=== PATIENT | female | born 1945 | race Caucasian/White ===

== ENCOUNTER 2017-06-11 06:14 | Day surgery (SDC) | payer BC ==
[2017-06-10 09:09] VITALS: BMI 21.6
[~2017-06-11 06:14] MED LIST: Cyclopentolate 1% Opth Drop 2 ML BOT FS SCH; Diprivan 20 ML ONE; Fentanyl 100 MCG/2 ML VIAL ONE; Fluorouracil 100 MG, Enoxaparin Sodium 25 MG, EPINEPHrine 0.3 MG in Ophthalmic Irrigati... IVPB SCH; Midazolam HCl 2 mg/2 ml Vial ONE; Phenylephrine 2.5% Ophth Soln 5 ML BOT FS SCH
[2017-06-11] MEDS ORDERED: Cyclopentolate 1% Opth Drop 2 ML BOT ONE (06:37)
[2017-06-11] MEDS ORDERED: Phenylephrine 2.5% Ophth Soln 5 ML BOT ONE (06:37)
[2017-06-11] MEDS ORDERED: Lidocaine 1% PF 5 ML VIAL ONE (11:19)
[2017-06-11] MEDS ORDERED: Propofol 200 MG/20 ML VIAL ONE (11:19)
--- NOTE | 2017-06-11 13:37 | OP ---
DATE OF SURGERY: 06/11/2017 PREOPERATIVE DIAGNOSIS: Macular hole, left eye. POSTOPERATIVE DIAGNOSIS: Macular hole, left eye. PROCEDURE: Pars plana vitrectomy, internal limiting membrane peel, left eye. SURGEON: Tejas García M.D. ANESTHESIA: Local with monitored anesthesia care. PROCEDURE IN DETAIL: The patient was identified in the preoperative holding area. Appropriate infor med consent for the planned surgical procedure on the left eye had been obtained. The patient was tr ansported to the operative suite where appropriate cardiopulmonary monitoring was established. Local anesthesia was obtained using retrobulbar and modified Van Lint lid block using 50/50 mixture of 4% lidocaine and 0.75% bupivacaine. The patient was prepped and draped in the usual sterile manner for ophthalmic surgery on the left eye. Lid speculum was placed in the left eye. A 25-gauge trocars wer e placed in conjunctiva and sclera supratemporally, inferotemporally, and supranasally. Infusion js e was placed inferotemporally. Light pipe and vitreous cutter were inserted into the eye. Core of v itrectomy was performed. Indocyanine green dye was infused onto the posterior pole x1, identifying t he internal limiting membrane. This was elevated using membrane scraper and peeled in [address] across the macula. Indirect ophthalmoscopy was used to examine the retina 360 degrees. No hol es, breaks, or tears were identified. Prophylactic laser was placed behind the sclerotomy sites. A 15% perfluoropropane gas was infused into the eye. Trocars were removed and the eye was noted to ret ain pressure well. Retrobulbar Kenalog and subconjunctival Ancef were placed. Antibiotic ointment w as placed and the eye was patched and shielded. The patient was taken to the postoperative recovery unit in good condition having suffered no immediate perioperative complications. Patient was instruc lele to keep patch and shield on, avoid lifting or bending, and follow up in the morning with Dr. García .
== END 2017-06-11 08:58 | disposition home or self-care (01) ==
LOC: SDC 06:14
PROVIDERS: ATTEND Ophthalmology Retina Specialist
DX: H35.342 Macular cyst, hole, or pseudohole, left eye (principal)
CPT/HCPCS: 67025; J0171; J1650; J2001; J2250; J2704; J3010; J9190

== ENCOUNTER 2019-01-26 14:32 | Inpatient (IN) | payer BC ==
[2019-01-26] MEDS ORDERED: Ondansetron PF 4 MG/2 ML Vial IVP PRN (17:22)
[2019-01-26] MEDS ORDERED: Morphine 2 MG/ML SYRINGE SLOW IVP PRN (17:22)
[2019-01-26] MEDS: Sodium Chloride 0.9% 1,000 ML IV SCH (17:54)
[2019-01-26 18:14] VITALS: BMI 23.6
[2019-01-26] MEDS: Piperacillin/Tazobactam 3.375 GM in Sodium Chloride 0.9% 100 ML IVPB SCH (19:02)
[2019-01-27] MEDS: Piperacillin/Tazobactam 3.375 GM in Sodium Chloride 0.9% 100 ML IVPB SCH ×4 (00:03→17:39)
[2019-01-27] MEDS: Sodium Chloride 0.9% 1,000 ML IV SCH ×3 (00:05→13:01)
[2019-01-27 06:29] LABS: Anion Gap 14 mmol/L (10-20); BUN (Urea Nitrogen) 9 mg/dL (9.8-20.1); Calc. Creatinine Clearance 77 mL/min (70-130); Calcium 8.2 mg/dL (7.8-10.44); Carbon Dioxide 23 mmol/L (23-31); Chloride 107 mmol/L (98-107); Estimated GFR-MDRD Greater than 90; Glucose 106 mg/dL (83-110); Potassium 3.6 mmol/L (3.5-5.1); Sodium 140 mmol/L (136-145)
--- NOTE | 2019-01-27 08:33 | HP ---
REASON FOR ADMISSION: Abdominal pain. HISTORY OF PRESENT ILLNESS: This is a 73-year-old female presenting with abdominal pain history going back to 5 days before her presentation. She started experiencing pain in her lower abdominal area described as cramping in nature worse at night, radiating to her back, [id number] in intensity, exacerbated with movement. She did not have any diarrhea. She denies fever. Denies chills. Denies nausea. Denies vomiting, but does report decrease in appetite. Yesterday, she was not able to go to sleep. Today, she went to the emergency room. CAT scan showed complicated diverticulitis. She was referred to us for admission. Currently, she is in the emergency room, appears to be comfortable, does not look toxic. PAST MEDICAL HISTORY: High cholesterol. SOCIAL HISTORY: She does not smoke. She quit smoking 5 months ago. She drinks alcohol socially. PAST SURGICAL HISTORY: Appendectomy. FAMILY HISTORY: Negative for heart disease. ALLERGIES: NO KNOWN DRUG ALLERGIES. REVIEW OF SYSTEMS: All systems reviewed except for the above-mentioned abdominal pain and found to be negative. PHYSICAL EXAMINATION: GENERAL: She is awake, alert, and oriented. Does not appear in distress. HEENT: Her blood pressure 117/75, heart rate of 94. HEENT: Head is nontraumatic and normocephalic. Pupils are equal and reactive. Extraocular muscles are intact. Nonicteric sclerae. Well-injected conjunctivae. Oral mucosa normal. Nasal mucosa normal. NECK: Supple. No adenopathy. No murmur. Thyroid is not palpable. Trachea is midline. No supraclavicular lymphadenopathy. HEART: S1 and S2 regular. No murmur. No gallops. No frictional rubs. No displacement of PMI. LUNGS: Clear to auscultation bilaterally. No wheezes. No rhonchi. No crackles. ABDOMEN: Bowel sounds are positive. Tenderness on palpation of the left lower quadrant area. Overall, the abdomen is soft. EXTREMITIES: No lower extremity edema. No cyanosis. NEUROLOGIC: Cranial nerves 2 through 12 within normal limits. Normal motor function. Normal sensory function and reflexes. LABORATORY DATA: Blood work shows sodium 140, potassium 3.6, BUN 15, creatinine 0.72. WBC 19.1, hemoglobin 11.7, platelets of 389. IMAGING DATA: CT of the abdomen and pelvis showed complicated acute diverticulitis with multiple pelvic abscesses, hyperdense fluid in the pelvis may represent the purulent debris. ASSESSMENT AND PLAN: This is a 73-year-old female patient, presenting with abdominal pain secondary to complicated diverticulitis. She did receive IV Zosyn at the ER and Surgery was consulted by the ER physician. The recommendation was for us to admit, start antibiotic, and they would see later on. The patient will be on aggressive fluid hydration and she will be maintained on IV Zosyn. She will have morphine on an as needed basis for pain. She will be n.p.o. except for ice chips. For deep venous thrombosis prophylaxis, she would be on SCDs and low-dose Lovenox. We will recheck her labs in the morning. We will follow Surgery recommendation. Job ID: [id number]
[2019-01-27 08:36] LABS: #Eosinphils 0.2 thou/uL (0.0-0.7); #Lymphocytes 1.4 thou/uL (1.20-3.40); #Monocytes 0.9 thou/uL (0.11-0.59); #Neutrophils 10.7 thou/uL (1.40-6.50); %Basophils 0.3 % (0.0-1.0); %Eosinophils 1.2 % (0.0-10.0); %Lymphocytes 10.8 % (21.0-51.0); %Monocytes 6.5 % (0.0-10.0); %Neutrophils 81.2 % (42.0-75.0); Hemoglobin 10.2 g/dL (12.0-16.0); Mean Corpuscular HGB CONC 32.9 g/dL (32.0-36.0); Mean Corpuscular Hemoglobin 31.4 pg (27.0-31.0); Mean Corpuscular Volume 95.5 fL (78.0-98.0); Mean Platelet Volume 7.7 fL (7.4-10.4); Platelet Count 360 thou/uL (130-400); RBC Distribution Width 11.9 % (11.5-14.5); Red Blood Cell (RBC) Count 3.23 mill/uL (4.20-5.40); White Blood Cell (WBC) Count 13.2 thou/uL (4.8-10.8)
[2019-01-27] MEDS: Enoxaparin Sodium 30 MG/0.3 ML SYRINGE SC SCH (10:18)
--- NOTE | 2019-01-27 13:33 | PDOC.HOSPP ---
- Subjective Encounter Date: 01/27/19 Subjective: She continues to have abdominal pain. - Objective Vital Signs & Weight: Vital Signs (12 hours) Temp Pulse Resp BP Pulse Ox 01/27/19 11:09 98.5 F 56 L 16 134/76 96 01/27/19 08:00 96 01/27/19 07:21 97.9 F 87 16 125/69 96 01/27/19 04:00 98.4 F 92 20 149/78 H 94 L Weight Weight 133 lb 8 oz I&O: 01/26/19 01/27/19 01/28/19 06:59 06:59 06:59 Intake Total 1700 Balance 1700 Result Diagrams: 01/27/19 05:08 01/27/19 05:08 Hospitalist ROS - Medication Medications: Active Medications Generic Name Dose Route Start Last Admin Trade Name Freq PRN Reason Stop Dose Admin Enoxaparin Sodium 30 mg 01/27/19 09:00 01/27/19 10:18 Lovenox SC Not Given 0900 EDD Piperacillin Sod/Tazobactam 100 mls @ 200 mls/hr 01/26/19 18:00 01/27/19 12: 59 Sod 3.375 gm/ Sodium Chloride IVPB 100 mls Q6HR EDD Administration Sodium Chloride 1,000 mls @ 125 mls/hr 01/26/19 17:22 01/27/19 13:01 Normal Saline 0.9% IV 1,000 mls .Q8H EDD Administration - Exam General Appearance: NAD, awake alert Eye: PERRL, anicteric sclera ENT: normocephalic atraumatic Respiratory: CTAB, no wheezes, no rales, no ronchi, normal chest expansion, no tachypnea, normal percussion Gastrointestinal: tender to palpation Extremities: no cyanosis, no clubbing, no edema Skin: normal turgor, no lesions, no rashes Neurological: CN's grossly intact, normal sensation to touch, no weakness, no focal deficits, no new deficit Hosp A/P (1) Diverticulitis Code(s): K57.92 - DVTRCLI OF INTEST, PART UNSP, W/O PERF OR ABSCESS W/O BLEED Status: Acute - Plan complicated diverticulitis---continue IV Zosyn---her labs are improving---will recheck in am---awaiting surgery for further recommendation. SCD for DVT prophylaxis Morphine for pain control.
[2019-01-27] MEDS ORDERED: traMADol HCl 50 MG TAB PO PRN ×2 (16:51)
[2019-01-27] MEDS ORDERED: Acetaminophen 325 MG TAB PO PRN (16:51)
--- NOTE | 2019-01-27 17:48 | CON ---
DATE OF CONSULTATION: 01/27/2019 REQUESTING PHYSICIAN: Becky Jhaveri MD HISTORY OF PRESENT ILLNESS: This is a 73-year-old woman, who was admitted yesterday with vague abdominal pain, malaise about 6 days duration. The patient was vacationing in [place] where she started to feel unwell. She had one episode of lower abdominal pain, which she rated as at 6 to 7/10 and resolved spontaneously. Since that time, however, she admits to not feeling quite well. She did not have any fevers or chills. She denied any diarrhea. She does not recall the last time she passed flatus. She thought it might have been yesterday. She denies any change in her bowel habits otherwise. PAST MEDICAL HISTORY: Pertinent for hyperlipidemia, and degenerative arthritic disease. PAST SURGICAL HISTORY: Pertinent for childhood tonsillectomy and adenoidectomy as well as appendectomy approximately 20 years ago. SOCIAL HISTORY: She is , lives at home with her . She admits to having a drink or two of vodka every night with her . She has not had any alcohol over the last 4 to 5 days. She used to smoke a pack of cigarettes per day for approximately 15 years. She has not smoked over the last 6 months. She denies any illicit drug abuse. FAMILY HISTORY: Noncontributory for this patient's age. PRE-HOSPITAL MEDICATIONS: Include: 1. Albuterol inhalation therapy q.4 hours p.r.n. 2. Ascorbic acid 1000 mg p.o. daily. 3. Aspirin 81 mg p.o. daily. 4. Calcium and vitamin D combination 600 mg/125 units p.o. daily. 5. Vitamin B12 of 1000 mcg p.o. q.a.m. 6. Fish oil 1000 mg p.o. b.i.d. 7. Magnesium 500 mg p.o. daily. 8. Quinapril 10 mg p.o. daily. 9. Simvastatin 40 mg p.o. daily. 10. Bupropion 150 mg p.o. daily. ALLERGIES: THE PATIENT DENIES ANY KNOWN DRUG ALLERGIES. REVIEW OF SYSTEMS: Ten-point review of systems essentially unremarkable except as stated in past medical history and chief complaint. PHYSICAL EXAMINATION: GENERAL: This reveals a 73-year-old normally developed woman, who is otherwise coherent and interactive and appears stated age. The patient is alert and oriented x3, appears to be in no acute distress at time of my evaluation. VITAL SIGNS: Include blood pressure 134/76, pulse is 56, respiratory rate is 16, temperature is 98.5 degrees Fahrenheit, oxygen saturation is 96% on room air. HEART: Reveals regular rate and rhythm. No murmurs or gallops auscultated. LUNGS: Clear to auscultation bilaterally. Breathing, regular and nonlabored. ABDOMEN: Soft and nondistended. She has mild tenderness in the bilateral lower quadrants. She clearly has no gross rebound tenderness present. Bowel sounds are present in all 4 quadrants and normoactive. EXTREMITIES: Reveal 2+ radial and pedal pulses bilaterally. No ankle edema is present. NEUROLOGIC: Reveals no focal deficits present. LABORATORY FINDINGS: Today include a CBC with 13,200 white blood cells, hemoglobin and hematocrit of 10.2 and 30.9 respectively, platelet count is 360,000. Metabolic profile; sodium 140, potassium 3.6, chloride is 107, bicarb is 23, BUN is 9, creatinine 0.61, glucose is 106. I have personally reviewed CT scan of the abdomen and pelvis, which was obtained yesterday. This reveals extensive diverticulosis coli involving the sigmoid colon. There is mesenteric fat stranding adjacent to the sigmoid colon. Also noted 3 fluid collections adjacent to the sigmoid colon and the urinary bladder measuring 5.8, 4.6, and 3.5 cm in diameter. No pneumoperitoneum is evident. IMPRESSION: Acute diverticulitis with multiple pelvic diverticular abscesses. RECOMMENDATIONS: Continue with current antibiotic regimen as this patient has no peritoneal signs to warrant any surgical intervention at this time. I did discuss with the Interventional Radiology, the positions of the abscesses relative to bowel and bladder make them not amenable to percutaneous drainage. The patient's physiology, which is normal at this time dictates conservative treatment. Should this treatment fail marked by either exacerbation of abdominal pain, any physiologic trend including fever, nausea, vomiting, blood pressure, or renal dysfunction. This may warrant laparoscopic abdominal washout and drainage of pelvic abscesses. Ultimately, the patient is going to require elective sigmoidectomy and primary anastomosis if the current acute diverticulitis with pelvic abscesses resolved. Prior to the elective colectomy, the patient will need prepped colon colonoscopy. She has not had any lower endoscopies over the last 10 years. Above findings and plan have been discussed with the patient in the presence of her nurse. She indicates understanding of information I have given her today. I have answered her questions. Thank you again, Dr. Jhaveri, for allowing me the opportunity to participate in the care of this patient. Job ID: [id number]
[2019-01-28] MEDS: Piperacillin/Tazobactam 3.375 GM in Sodium Chloride 0.9% 100 ML IVPB SCH ×2 (00:55→06:04)
--- NOTE | 2019-01-28 00:55 | PRG ---
DATE OF SERVICE: 01/27/2019 SUBJECTIVE: Ms. Palmer is 73 -year-old female, came to the emergency room with abdominal pain. She was found to have acute diverticulitis with multiple pelvic diverticular abscesses. Dr. Palacios saw the patient earlier today with recommendation to continue with current antibiotic regimen as the patient did not have peritoneal signs to warrant any surgical intervention at that time. When I saw the patient on rounds this evening, the patient is lying down in bed comfortably. She reports no spontaneous abdominal pain, but she reports she does have abdominal pain of the left lower quadrant to touch. She reports no vomiting or nausea. She developed no fever or shortness of breath. OBJECTIVE: VITAL SIGNS: Stable. LUNGS: Clear bilaterally. HEART: Regular rate and rhythm. ABDOMEN: Generally soft. No rebound. No guarding. EXTREMITIES: Left lower extremity tender to touch. Bowel sounds normal. PLAN: Will be to continue serial exam for peritoneal signs, continue antibiotics and the patient to continue on liquid diet. Job ID: [id number] MTDD
[2019-01-28] MEDS: Sodium Chloride 0.9% 1,000 ML IV SCH ×3 (01:36→16:38)
[2019-01-28 08:12] LABS: Hemoglobin 10.1 g/dL (12.0-16.0); Mean Corpuscular Hemoglobin 31.4 pg (27.0-31.0); Mean Corpuscular Volume 94.9 fL (78.0-98.0); Mean Platelet Volume 7.5 fL (7.4-10.4); Platelet Count 385 thou/uL (130-400); RBC Distribution Width 11.9 % (11.5-14.5); Red Blood Cell (RBC) Count 3.23 mill/uL (4.20-5.40); White Blood Cell (WBC) Count 9.1 thou/uL (4.8-10.8)
[2019-01-28 08:19] LABS: Phosphorus 2.1 mg/dL (2.3-4.7)
[2019-01-28 08:24] LABS: Anion Gap 14 mmol/L (10-20); BUN (Urea Nitrogen) 5 mg/dL (9.8-20.1); Calc. Creatinine Clearance 86 mL/min (70-130); Calcium 8.3 mg/dL (7.8-10.44); Carbon Dioxide 25 mmol/L (23-31); Chloride 105 mmol/L (98-107); Estimated GFR-MDRD Greater than 90; Glucose 98 mg/dL (83-110); Magnesium 1.6 mg/dL (1.6-2.6); Sodium 141 mmol/L (136-145)
[2019-01-28 08:33] LABS: Potassium 2.9 mmol/L (3.5-5.1)
[2019-01-28] MEDS ORDERED: Potassium Phosphate 30 MMOL, Magnesium Sulfate 4 GM in Sodium Chloride 0.9% 250 ML 250 ML IVPB SCH (08:45)
[2019-01-28] MEDS ORDERED: Ciprofloxacin 500 MG TAB PO SCH (08:45)
[2019-01-28] MEDS ORDERED: Potassium Chloride 20 MEQ in Premix Bag 1 BAG IVPB SCH (09:00)
[2019-01-28 09:15] LABS: Band 15 % (5-11); Lymphocytes 17 % (21-51); MDiff Complete? YES; Monocytes 6 % (0-10); Neutrophil 62 % (42-75); Platelet Morphology Comment Appears Adequate; Polychromasia SLIGHT = 2-3 cells (100X) (0-2/hpf)
[2019-01-28] MEDS: metroNIDAZOLE 500 MG TAB PO SCH ×3 (09:17→20:12)
[2019-01-28] MEDS: Enoxaparin Sodium 30 MG/0.3 ML SYRINGE SC SCH (09:17)
[2019-01-28] MEDS: Bupropion 150 MG XL TAB PO SCH (09:17)
--- NOTE | 2019-01-28 15:18 | PRG ---
DATE OF SERVICE: 01/28/2019 SUBJECTIVE: Ms. Palmer is a 73-year-old woman, admitted with acute diverticulitis with multiple diverticular abscesses. The patient is awake and alert today. She tolerates clear liquid diet. She denies any abdominal pain. She is passing flatus and having bowel movements. OBJECTIVE: VITAL SIGNS: Her vital signs this morning include blood pressure 173/84, pulse is 85, respiratory rate is 16, temperature 98.1 degrees Fahrenheit, oxygen saturation 96% on room air. HEART: Regular rate and rhythm. No murmurs or gallops auscultated. LUNGS: Clear to auscultation bilaterally. Her breathing is regular and nonlabored. ABDOMEN: Soft, nontender, and nondistended. Bowel sounds in all 4 quadrants appear normoactive. NEUROLOGIC: No focal deficits present. LABORATORY DATA: Laboratory findings today include a CBC with 9100 white blood cells, this is down from 13,200 yesterday. Hemoglobin and hematocrit remained stable at 10.1 and 30.7 respectively. Platelet count is 385,000. Differential counts as follows: 62% segmented neutrophils, 15 bands, 17 lymphocytes, and 6 monocytes. Metabolic profile: Sodium 141, potassium 2.9, chloride is 105, bicarb is 25, BUN is 5, creatinine 0.55, glucose is 98, phosphorus is 2.1, magnesium is 1.6. IMPRESSIONS: 1. Acute diverticulitis with multiple diverticular abscesses, hemodynamically stable with no evidence of peritonitis. 2. Acute hypokalemia. 3. Acute hypomagnesemia. 4. Acute hypophosphatemia. PLAN: 1. Correct abnormal electrolytes. 2. Advance diet and activity as tolerated. 3. We will discontinue piperacillin and tazobactam and initiate oral ciprofloxacin and metronidazole. 4. The patient will be placed on Florastor as well. 5. Anticipate discharge within next 24 to 48 hours if tolerating diet with no onset of abdominal pain and the patient is able to tolerate antibiotic therapy. Above findings and plans discussed with the patient who indicates understanding information given. We informed her she will be taking the antibiotics for the next 2 weeks, after which we will repeat the CT scan of the abdomen and pelvis to monitor for resolution of the diverticular abscesses. The patient indicates understanding information given, and I have answered her questions. There remain no acute surgical indication therefore for this patient at this time. Job ID: [id number]
--- NOTE | 2019-01-28 19:25 | PDOC.HOSPP ---
- Subjective Encounter Date: 01/28/19 Subjective: eating dinner and has no complaints - Objective Vital Signs & Weight: Vital Signs (12 hours) Temp Pulse Resp BP Pulse Ox 01/28/19 08:00 96 01/28/19 07:59 98.1 F 85 16 173/84 H 96 Weight Weight 133 lb 8 oz I&O: 01/27/19 01/28/19 01/29/19 06:59 06:59 06:59 Intake Total 1700 Balance 1700 Result Diagrams: 01/28/19 07:37 01/28/19 07:37 Hospitalist ROS - Medication Medications: Active Medications Generic Name Dose Route Start Last Admin Trade Name Danialq PRN Reason Stop Dose Admin Bupropion HCl 150 mg 01/28/19 09:00 01/28/19 09:17 Wellbutrin Xl PO 150 mg QAM EDD Administration Enoxaparin Sodium 30 mg 01/27/19 09:00 01/28/19 09:17 Lovenox SC 30 mg 0900 EDD Administration Metronidazole 500 mg 01/28/19 09:00 01/28/19 14:37 Flagyl PO 500 mg TID EDD Administration Sodium Chloride 10 ml 01/28/19 09:00 01/28/19 09:18 Flush - Normal Saline IVF 10 ml Q12HR EDD Administration - Exam General Appearance: NAD, awake alert, ill appearing Eye: PERRL, anicteric sclera, scleral icterus ENT: normocephalic atraumatic, no oropharyngeal lesions, moist mucosa, dry oral mucosa Heart: RRR, no murmur, no gallops, no rubs, normal peripheral pulses, irregular , diminshed peripheral pulses, murmur present, II/IV, III/IV Respiratory: CTAB, no wheezes, no rales, no ronchi, normal chest expansion, no tachypnea, normal percussion, rales, rhonchi, tachypneic, wheezes Gastrointestinal: soft, non-tender, non-distended, normal bowel sounds, no palpable masses, no hepatomegaly, no splenomegaly, no bruit, no guarding, no rigidity, tender to palpation, distended, diminished bowl sounds, voluntary guarding Extremities: no cyanosis, no clubbing, no edema, 1+ LE edema, 2+ LE edema, clubbing Skin: normal turgor, no lesions, no rashes, tenting Hosp A/P (1) Diverticulitis Code(s): K57.92 - DVTRCLI OF INTEST, PART UNSP, W/O PERF OR ABSCESS W/O BLEED Status: Acute - Plan complicated diverticulitis---transitioned to oral ATB and on a regular diet. SCD for DVT prophylaxis Morphine for pain control. Home BP meds restarted lytes replaced , recheck in am
[2019-01-28] MEDS: Ciprofloxacin 500 MG TAB PO SCH (20:12)
[2019-01-28] MEDS: Fish Oil 1,000 MG CAP PO SCH (20:13)
[2019-01-28] MEDS ORDERED: Ascorbic Acid 500 mg Chewable Tablet PO SCH (21:00)
[2019-01-28] MEDS ORDERED: Atorvastatin Calcium 20 MG TAB PO SCH (21:00)
[2019-01-29] MEDS: Ciprofloxacin 500 MG TAB PO SCH (05:14)
[2019-01-29 07:38] LABS: Hemoglobin 9.9 g/dL (12.0-16.0); Mean Corpuscular HGB CONC 33.3 g/dL (32.0-36.0); Mean Corpuscular Hemoglobin 31.3 pg (27.0-31.0); Mean Platelet Volume 7.3 fL (7.4-10.4); Platelet Count 431 thou/uL (130-400); RBC Distribution Width 11.8 % (11.5-14.5); Red Blood Cell (RBC) Count 3.15 mill/uL (4.20-5.40); White Blood Cell (WBC) Count 6.6 thou/uL (4.8-10.8)
[2019-01-29 07:48] LABS: Anion Gap 12 mmol/L (10-20); BUN (Urea Nitrogen) Less than 4 mg/dL (9.8-20.1); Calc. Creatinine Clearance 83 mL/min (70-130); Calcium 8.4 mg/dL (7.8-10.44); Carbon Dioxide 25 mmol/L (23-31); Chloride 104 mmol/L (98-107); Estimated GFR-MDRD Greater than 90; Glucose 112 mg/dL (83-110); Magnesium 2.1 mg/dL (1.6-2.6); Phosphorus 2.1 mg/dL (2.3-4.7); Potassium 3.4 mmol/L (3.5-5.1); Sodium 138 mmol/L (136-145)
[2019-01-29 08:00] LABS: Band 3 % (5-11); Eosinophils 4 % (0-10); Lymphocytes 12 % (21-51); MDiff Complete? YES; Monocytes 7 % (0-10); Neutrophil 73 % (42-75); Platelet Morphology Comment Appears Increased; Reactive Lymphocytes 1 % (0-10)
[2019-01-29] MEDS: Bupropion 150 MG XL TAB PO SCH (08:38)
[2019-01-29] MEDS: Enoxaparin Sodium 30 MG/0.3 ML SYRINGE SC SCH (08:38)
[2019-01-29] MEDS: Fish Oil 1,000 MG CAP PO SCH (08:38)
[2019-01-29] MEDS: metroNIDAZOLE 500 MG TAB PO SCH ×2 (08:38→15:28)
[2019-01-29] MEDS ORDERED: Cyanocobalamin (Vitamin B-12) 1,000 MCG TAB PO SCH (09:00)
[2019-01-29] MEDS ORDERED: Calcium Carbonate + Vit D 1 TAB PO SCH (09:00)
[2019-01-29] MEDS ORDERED: Stress 600 With Zinc 1 TAB PO SCH (09:00)
[2019-01-29] MEDS ORDERED: Saccharomyces boulardii 250 MG CAP PO SCH (09:00)
[2019-01-29] MEDS ORDERED: Lisinopril 10 MG TAB PO SCH (09:00)
[2019-01-29] MEDS ORDERED: Magnesium Oxide 250 MG TAB PO SCH (09:00)
--- NOTE | 2019-01-29 15:49 | PDOC.HOSPP ---
- Subjective Encounter Date: 01/29/19 Encounter Time: 15:48 Subjective: Ms. Palmer was seen today in follow-up of diverticulitis and abscess. She is doing fine, and would like to go home.She is tolerating a diet, and denies abdominal pain. - Objective Vital Signs & Weight: Vital Signs (12 hours) Temp Pulse Resp BP BP Pulse Ox 01/29/19 08:38 145/90 H 01/29/19 08:00 98.2 F 80 18 145/90 H 96 Weight Weight 133 lb 8 oz I&O: 01/28/19 01/29/19 01/30/19 06:59 06:59 06:59 Intake Total 350 Balance 350 Result Diagrams: 01/29/19 06:43 01/29/19 06:43 Hospitalist ROS - Medication Medications: Active Medications Generic Name Dose Route Start Last Admin Trade Name Freq PRN Reason Stop Dose Admin Ascorbic Acid 1,000 mg 01/28/19 21:00 01/28/19 20:13 Vitamin C PO 1,000 mg QPM EDD Administration Atorvastatin Calcium 20 mg 01/28/19 21:00 01/28/19 20:12 Lipitor PO 20 mg HS EDD Administration Bupropion HCl 150 mg 01/28/19 09:00 01/29/19 08:38 Wellbutrin Xl PO 150 mg QAM EDD Administration Calcium/Vitamin D 1 tab 01/29/19 09:00 01/29/19 08:38 Caltrate 600 + Vit D PO 1 tab QAM EDD Administration Ciprofloxacin 500 mg 01/28/19 20:00 01/29/19 05:14 Cipro PO 500 mg 0600,2000 EDD Administration Cyanocobalamin 1,000 mcg 01/29/19 09:00 01/29/19 08:38 Vitamin B-12 PO 1,000 mcg QAM EDD Administration Enoxaparin Sodium 30 mg 01/27/19 09:00 01/29/19 08:38 Lovenox SC 30 mg 0900 EDD Administration Fish Oil 1,000 mg 01/28/19 21:00 01/29/19 08:38 Fish Oil PO 1,000 mg BID EDD Administration Lisinopril 10 mg 01/29/19 09:00 01/29/19 08:38 Zestril PO 10 mg QAM EDD Administration Magnesium Oxide 500 mg 01/29/19 09:00 01/29/19 08:37 Magnesium Oxide PO 500 mg QAM EDD Administration Metronidazole 500 mg 01/28/19 09:00 01/29/19 15:28 Flagyl PO 500 mg TID EDD Administration Multivitamins/Zinc 1 tab 01/29/19 09:00 01/29/19 08:38 Stress 600 With Zinc PO 1 tab QAM EDD Administration Saccharomyces Boulardii 250 mg 01/29/19 09:00 01/29/19 08:38 Florastor PO 250 mg DAILY EDD Administration Sodium Chloride 10 ml 01/28/19 09:00 01/29/19 08:39 Flush - Normal Saline IVF Not Given Q12HR EDD - Exam Eye: PERRL, anicteric sclera Heart: RRR, no murmur, no gallops, no rubs, normal peripheral pulses Respiratory: CTAB, no wheezes, no rales, no ronchi, normal chest expansion Gastrointestinal: soft, non-tender, non-distended, normal bowel sounds, no palpable masses, no hepatomegaly, no splenomegaly, no bruit Extremities: no cyanosis, no edema Hosp A/P (1) Colonic diverticular abscess Code(s): K57.20 - DVTRCLI OF LG INT W PERFORATION AND ABSCESS W/O BLEEDING Status: Acute (2) Diverticulitis Code(s): K57.92 - DVTRCLI OF INTEST, PART UNSP, W/O PERF OR ABSCESS W/O BLEED Status: Acute - Plan * Diverticular Abascess- much improved * Stable for discharge home
--- NOTE | 2019-01-29 15:56 | PRG ---
DATE OF SERVICE: 01/29/2019 SUBJECTIVE: Ms. Palmer is a 73-year-old woman being treated for acute sigmoid colon diverticulitis with multiple pelvic diverticular abscesses. She tolerates oral antibiotics. She reports 3 bowel movements over the last 24 hours. She denies any fevers or chills. She denies any abdominal pain. OBJECTIVE: VITAL SIGNS: This morning include blood pressure 145/90, pulse 80, respiratory rate is 18, temperature 98.2 degrees Fahrenheit, and oxygen saturation is 96% on room air. HEART: Reveals regular rate. LUNGS: Clear to auscultation bilaterally. ABDOMEN: Soft, nontender, nondistended. NEUROLOGIC: Reveals no focal deficits present. LABORATORY FINDINGS: Include a CBC with 6600 white blood cells, hemoglobin and hematocrit stable at 9.9 and 29.6 respectively. Platelet count is 431,000. Metabolic profile; sodium 138, potassium is 3.4, chloride is 104, bicarb is 25, BUN is 4, creatinine 0.57, glucose 112, magnesium is 2.1, and phosphorus is 2.1. IMPRESSION: 1. Resolving acute sigmoid colon diverticulitis. 2. Acute hypokalemia. 3. Acute hypophosphatemia. PLAN: 1. Correct abnormal electrolytes. 2. Continue with oral antibiotic therapy for the next 2 weeks. 3. There is no acute surgical indication for this patient at this time. 4. This patient may be discharged to home at the discretion of Primary Service. She is to follow up with me in the Surgery Clinic in 2 weeks with a repeat CT scan of the abdomen and pelvis. Above findings and plan discussed with the patient who indicates understanding information given. I have answered her questions. Job ID: [id number]
[2019-01-29 17:34] VITALS: BP 132/76; TEMP 98.4
--- NOTE | 2019-01-29 21:59 | DIS ---
DATE OF ADMISSION: 01/26/2019 DATE OF DISCHARGE: 01/29/2019 PRIMARY CARE PHYSICIAN: Maureen Porter MD. DISCHARGE DISPOSITION: Home. DISCHARGE DIAGNOSES: 1. Diverticulitis with abscess. 2. Hyperlipidemia. DISCHARGE MEDICATIONS: Include 1. Ciprofloxacin 500 mg twice daily for 10 days. 2. Flagyl 500 mg t.i.d. for 10 days. 3. Continue Florastor 250 mg daily. 4. Simvastatin 40 mg daily. 5. Exelon patch 4.6 mg topical daily. 6. Quinapril 10 mg p.o. daily. 7. Magnesium 500 mg daily. 8. Ipratropium 2 sprays in each nares three times a day. 9. Fish oil 1000 mg twice a day. 10. Vitamin B12 1000 mcg p.o. daily. 11. Calcium plus vitamin D one tablet daily. 12. Bupropion 150 mg p.o. daily extended release. 13. Aspirin 81 mg daily. 14. Vitamin C 1000 mg p.o. daily. 15. ProAir one puff q.4 hours as needed. PROCEDURE DONE DURING THE ADMISSION: The patient had a CT scan of the abdomen and pelvis, showing complicated acute diverticulitis with multiple pelvic abscesses. CODE STATUS: Full code. ALLERGIES: NO KNOWN DRUG ALLERGIES. HOSPITAL COURSE: Ms. Palmer is a pleasant 73-year-old female who presented to the emergency room complaining of severe abdominal pain. She was evaluated in the ER and found to have a diverticulitis with abscess. She was admitted, started on IV antibiotics and was seen by General Surgery. This was felt that it could be managed nonoperatively and she was managed on IV antibiotics and improved and once clinically stable and her leukocytosis resolved, she was able to be discharged home on oral antibiotics with close outpatient followup. Job ID: [id number]
== END 2019-01-29 16:55 | disposition home or self-care (01) | DRG 392 ==
LOC: ERS 14:32 → T4-A 15:32
PROVIDERS: ADMIT Internal Medicine; ATTEND Internal Medicine
DX: K57.20 Diverticulitis of large intestine with perforation and abscess without bleeding (principal); E78.5 Hyperlipidemia, unspecified; E87.6 Hypokalemia; E83.42 Hypomagnesemia; E83.39 Other disorders of phosphorus metabolism; Z87.891 Personal history of nicotine dependence; Z90.49 Acquired absence of other specified parts of digestive tract; Z79.899 Other long term (current) drug therapy; Z79.82 Long term (current) use of aspirin; I10 Essential (primary) hypertension; E78.00 Pure hypercholesterolemia, unspecified; M19.90 Unspecified osteoarthritis, unspecified site; Z79.51 Long term (current) use of inhaled steroids
CPT/HCPCS: 36415; 80048; 83605; 83735; 84100; 85007; 85025; 85027; 99285; J1650; J2543; J3475; J3480; J3490; J7050

== ENCOUNTER 2019-02-08 13:12 | Outpatient (CLI) | payer BC ==
--- NOTE | 2019-02-08 14:57 | CT ---
CT ABDOMEN AND PELVIS WITH IV CONTRAST 02/08/2019 CLINICAL INFORMATION: Follow-up diverticulitis and abscess collections. COMPARISON: 01/26/2019 Technique: Multiple contiguous axial CT images are obtained through the abdomen and pelvis with IV contrast. Cor onal reformatted images are provided. FINDINGS: Lower Chest: Calcified granuloma is again present left lung base with atelectasis versus scarring in the lingula. Vessels: Vascular calcifications are again seen in the abdominal aorta and involving the iliac arteri es. Abdomen: Portal vein:Patent Gallbladder: Within normal limits for CT imaging. Liver: A subcentimeter too small to characterize hypodense lesion is again seen at the medial aspect of the right hepatic lobe stable from prior study. Spleen: Multiple splenic granulomata. Pancreas: within normal limits. Adrenals: There is a stable nodule involving the right adrenal gland. This nodule was also present on study in 2013. Left adrenal gland has a normal appearance. Kidneys: Few tiny subcentimeter too small to characterize hypodense lesions are seen in each kidney. There is no hydronephrosis. Bowel: The bowel wall thickening involving the sigmoid colon has improved. Adjacent pericolonic infla mmatory changes have also improved. Appendix: Not visualized, but no secondary signs are seen to suggest appendicitis. Peritoneum/Retroperitoneum: Previously noted fluid collections within the pelvis are again seen which do contain gas and are likely related to abscess collections. The lowermost collection within the lower pelvis previously measured 5.9 cm in greatest AP dimension with greatest AP dimension on today' s examination of 5.1 cm. Small collection just superior to this location previously measured 4.6 cm and now measures 2.7 cm. An additional fluid and gas collection just superior to these collections is also again seen, previously measuring 4.3 cm in AP dimensions and now measures 3.8 cm. Abdominal Wall: within normal limits. Pelvis: Reproductive Organs: No pelvic masses. Pelvis: As described above. Bladder: Decompressed. Bones: Degenerative changes are again seen in the spine with bilateral hip osteoarthritis present. IMPRESSION: 1. Interval decrease in size of the fluid collections within the left hemipelvis with associated gas present within the 2 larger collections. Findings are suggestive of interval decrease in size of abscess collections; although, the collections do persist. The small collection seen in the region of the wall of the sigmoid colon just to the right of midline has resolved. 2. Colonic wall thickening involving the sigmoid colon as well as adjacent pericolonic inflammatory c hanges have improved. There is evidence of colonic diverticulosis. 3. No free intraperitoneal gas is visualized. Free fluid noted in the pelvis on the prior exam has re solved.
== END 2019-02-08 13:13 | disposition home or self-care (01) ==
LOC: SCSCT 13:12 → BICCT 13:13
PROVIDERS: ATTEND Surgery
DX: K57.80 Diverticulitis of intestine, part unspecified, with perforation and abscess without bleeding (principal); K57.30 Diverticulosis of large intestine without perforation or abscess without bleeding; K63.89 Other specified diseases of intestine
CPT/HCPCS: 74177

== ENCOUNTER 2019-09-16 19:01 | Observation (INO) | payer BC ==
[2019-09-16] MEDS ORDERED: Magnesium 2 GM/50 ML BAG (IN WATER) ONE (20:37)
[2019-09-16] MEDS ORDERED: HYDROcodone/Acetaminophen 5/325 mg Tablet PO PRN (22:26)
[2019-09-16] MEDS ORDERED: Acetaminophen 325 MG TAB PO PRN (22:26)
[2019-09-16] MEDS ORDERED: Ondansetron ODT 4 MG TAB PO PRN (22:26)
--- NOTE | 2019-09-16 22:40 | PDOC.HHP ---
Hospitalist HPI - History of Present Illness dyspnea History of Present Illness: Case of an 74y/o female with pmhx of htn, hypothyroidism hypercholesterolemia and likely undiagnosed copd who comes to hospital due to dyspnea. patient refers she was on her usual state of health until 2weeks ago when she started with dyspnea and occasional dry cough. she states symptoms kept progressing until today when her sob got worse and she was feeling exhausted after just bathing for which she seekd medical assistance. at initial evaluation patient arrived with the sat in the 80s at for which she was treated w [facility] steroids and 02 supplementation and transfer to this institution for for further evaluation and management. patient denies any fever chills sputum production chest or abd pain. Hospitalist ROS - Review of Systems All other systems reviewed; all pertinent +/- noted in HPI/Subj Hospitalist History - Past Medical History Source: patient Cardiac: reports: HTN, Hyperlipidemia Pulmonary: reports: COPD Endocrine: reports: Hypothyroidism - Past Surgical History Past Surgical History: reports: Appendectomy, Tonsillectomy - Family History Other Family History: psychiatric disease - mother - Social History Smoking Status: Current some day smoker Alcohol: reports: Occassional Drugs: reports: none Living Situation: With Family Activity level: uses cane/walker - Exam General Appearance: NAD Eye: PERRL, anicteric sclera ENT: normocephalic atraumatic, no oropharyngeal lesions Neck: supple, symmetric, no JVD, no thyromegaly Heart: RRR, no murmur, no gallops, no rubs Respiratory: tachypneic Respiratory - other findings: decreased b/l lung sounds Gastrointestinal: soft, non-tender, non-distended Extremities: no cyanosis, no clubbing, no edema Skin: normal turgor, no lesions, no rashes Neurological: cranial nerve grossly intact, normal sensation to touch, no weakness Musculoskeletal: normal tone, normal strength, no muscle wasting Psychiatric: normal affect, normal behavior, A&O x 3 Hospitalist H&P A/P - Problem (1) COPD exacerbation Code(s): J44.1 - CHRONIC OBSTRUCTIVE PULMONARY DISEASE W (ACUTE) EXACERBATION Status: Acute (2) Respiratory failure with hypoxia Code(s): J96.91 - RESPIRATORY FAILURE, UNSPECIFIED WITH HYPOXIA Status: Acute (3) HTN (hypertension) Code(s): I10 - ESSENTIAL (PRIMARY) HYPERTENSION Status: Acute (4) Hypothyroidism Code(s): E03.9 - HYPOTHYROIDISM, UNSPECIFIED Status: Acute (5) Hypercholesterolemia Code(s): E78.00 - PURE HYPERCHOLESTEROLEMIA, UNSPECIFIED Status: Acute - Plan Plan: copd exacerbation - cxr with copd changes w air trapping and flattening of the diaphragm, will start dual nebs iv steroids 02 supplementation and iv abx hypoxic resp failiure - pt tachypnic in the 30s was satting in the 80s at [facility] at arrival, improved with tx and 02 supplementation, wean as tolerated htn - continue home meds adjust as necessary hypothyroidism - continue home meds hypercholesterolemia - continue home meds
[2019-09-16 23:16] VITALS: BMI 22.2
[2019-09-17] MEDS ORDERED: hydrALAZINE 20 MG/ML VIAL SLOW IVP PRN (00:10)
[2019-09-17] MEDS ORDERED: Bacteriostatic Water 30 ML VIAL FS PRN (00:29)
[2019-09-17] MEDS ORDERED: Azithromycin 500 MG in Sodium Chloride 0.9% 250 ML 250 ML IVPB SCH (01:00)
[2019-09-17] MEDS ORDERED: methylPREDNISolone Sod Succ 40 MG VIAL IVP SCH (06:00)
[2019-09-17] MEDS ORDERED: Prevnar 13-Val Conj/PF 0.5 ML SYRINGE IM ONE (09:00)
[2019-09-17] MEDS ORDERED: Enoxaparin Sodium 40 MG/0.4 ML SYRINGE SC SCH (09:00)
[2019-09-17 11:24] VITALS: BP 178/75; TEMP 97.4
--- NOTE | 2019-09-18 18:30 | DIS ---
DATE OF ADMISSION: 09/16/2019 DATE OF DISCHARGE: 09/17/2019 DISCHARGE DIAGNOSIS: 1. Acute hypoxic respiratory failure secondary to chronic obstructive pulmonary disease exacerbation. CONSULTATIONS: None. PROCEDURES: None. BRIEF HISTORY OF PRESENT ILLNESS: This is a 74-year-old female with a history of possible COPD, comes to the emergency room with dry cough and shortness of breath. The patient reported that her shortness of breath got so severe that she was not even able to bathe. Her O2 saturation was 80% on room air. She was given steroids and nebulizers and admitted for further workup. HOSPITAL COURSE: Acute hypoxic respiratory failure secondary to COPD exacerbation: The patient had a chest x-ray on the , which showed some lung hyperinflation. There was no evidence of pneumonia. She did have troponins checked, which was negative. She denied any chest pain. She was treated with breathing treatments and steroids. Her oxygen saturation came down to normal on room air. She was discharged with prednisone 40 mg for 5 days and Symbicort inhaler to take one puff twice daily. She should follow up with her PCP in a week and consider getting PFTs done. DISCHARGE PHYSICAL EXAMINATION: VITAL SIGNS: Temperature 97.4, heart rate 80, respiratory rate 20, O2 saturation 97% on room air, blood pressure 178/75. GENERAL: The patient is alert, awake, oriented x3. CVS: Regular rate and rhythm with no murmurs, rubs, or gallops. LUNGS: Slightly diminished, however, there is no wheezing. ABDOMEN: Positive bowel sounds, soft, nontender, nondistended. EXTREMITIES: No edema. PERTINENT LABORATORY DATA: CBC 09/15: Unremarkable. BMP 09/15: Unremarkable. IMAGING: Chest x-ray 09/15: No acute intrathoracic abnormality. There is mild lung hyperinflation. Calcified granulomas in the left lung base and peripheral aspects of the right lower lobe. DISCHARGE CONDITION: Stable. ACTIVITY: As tolerated. DIET: Regular diet. DISCHARGE MEDICATIONS: 1. Azithromycin 250 mg p.o. daily for 4 days. 2. Symbicort 1 puff inhaled twice daily. 3. Prednisone 40 mg daily for 4 days. DISCHARGE INSTRUCTIONS: The patient to follow up with her PCP in a week and consider getting PFTs done for further assessment. Job ID: [id number] [facility]
== END 2019-09-17 14:41 | disposition home or self-care (01) ==
LOC: ERS 19:01 → ONC 21:47 → INTOOBSV 21:47
PROVIDERS: ADMIT Internal Medicine; ATTEND Internal Medicine
DX: J44.1 Chronic obstructive pulmonary disease with (acute) exacerbation (principal); J96.01 Acute respiratory failure with hypoxia; I10 Essential (primary) hypertension; E03.9 Hypothyroidism, unspecified; E78.00 Pure hypercholesterolemia, unspecified; Z87.891 Personal history of nicotine dependence; Z79.82 Long term (current) use of aspirin; Z79.899 Other long term (current) drug therapy
CPT/HCPCS: 36415; 85379; 94640; 96365; 96372; 96375; G0378; J0360; J0456; J1650; J2920; J3475; J7050; J7620

== ENCOUNTER 2022-06-03 07:20 | Day surgery (SDC) | payer BC ==
[~2022-06-03 07:20] MED LIST changes: -Cyclopentolate 1% Opth Drop 2 ML BOT FS SCH; -Diprivan 20 ML ONE; +EPINEPHrine 0.3 MG in Ophthalmic Irrigation Solution 500 ML IRR SCH; -Fluorouracil 100 MG, Enoxaparin Sodium 25 MG, EPINEPHrine 0.3 MG in Ophthalmic Irrigati... IVPB SCH; -Phenylephrine 2.5% Ophth Soln 5 ML BOT FS SCH
[2022-06-03] MEDS ORDERED: Phenylephrine 2.5% Ophth Soln 5 ML BOT ONE (07:49)
[2022-06-03] MEDS ORDERED: Cyclopentolate 1% Opth Drop 2 ML BOT ONE (07:49)
[2022-06-03] MEDS ORDERED: Triamcinolone 40 MG/ML VIAL ONE (09:33)
[2022-06-03] MEDS ORDERED: Bupivacaine 0.75% 10 ML VIAL ONE (09:33)
[2022-06-03] MEDS ORDERED: CEFAZOLIN 1 GM VIAL ONE (09:33)
[2022-06-03] MEDS ORDERED: PROPOFOL 200 MG/20 ML VIAL ONE (09:33)
[2022-06-03] MEDS ORDERED: Maxitrol 0.1% Opth Oint 3.5 GM TUBE ONE (09:33)
[2022-06-03] MEDS ORDERED: Lidocaine 1% PF 5 ML VIAL ONE (09:33)
== END 2022-06-03 10:47 | disposition home or self-care (01) ==
LOC: SDC 07:20
PROVIDERS: ATTEND Ophthalmology Retina Specialist
PROC: 08T53ZZ Resection of Left Vitreous, Percutaneous Approach (ICD-10-PCS; principal; 2022-06-03)
PROC: 08QF3ZZ Repair Left Retina, Percutaneous Approach (ICD-10-PCS; principal; 2022-06-03)
DX: H43.12 Vitreous hemorrhage, left eye (principal); H34.8122 Central retinal vein occlusion, left eye, stable
CPT/HCPCS: J0171; J0690; J2250; J2704; J3010; J3301; J3490

== ENCOUNTER 2023-06-26 15:53 | Emergency (ER) | payer BC ==
[~2023-06-26 15:53] MED LIST changes: -EPINEPHrine 0.3 MG in Ophthalmic Irrigation Solution 500 ML IRR SCH; -Fentanyl 100 MCG/2 ML VIAL ONE; +Iopamidol-370 76% 500 ML MDV (1 ML CHARGE) ONE; -Midazolam HCl 2 mg/2 ml Vial ONE
[2023-06-26] MEDS ORDERED: fentaNYL 50 mcg/mL 1 mL Vial ONE (16:58)
[2023-06-26 17:18] LABS: #Eosinphils 0.1 thou/uL (0.0-0.7); #Monocytes 0.6 thou/uL (0.11-0.59); #Neutrophils 10.6 thou/uL (1.40-6.50); %Basophils 0.2 % (0.0-1.0); %Eosinophils 0.6 % (0.0-10.0); %Monocytes 4.8 % (0.0-10.0); %Neutrophils 81.6 % (42.0-75.0); Hematocrit 37.6 % (36.0-47.0); Hemoglobin 12.2 g/dL (12.0-16.0); Mean Corpuscular HGB CONC 32.4 g/dL (32.0-36.0); Mean Corpuscular Volume 92.4 fl (78.0-98.0); Mean Platelet Volume 9.2 fL (7.4-10.4); Platelet Count 538 10x3/uL (130-400); RBC Distribution Width 17.5 % (11.5-14.5); Red Blood Cell (RBC) Count 4.07 mill/uL (4.20-5.40)
[2023-06-26 17:42] LABS: ALT (SGPT) 17 U/L (8-55); AST (SGOT) 16 U/L (5-34); Albumin 4.1 g/dL (3.4-4.8); Alkaline Phosphatase 68 U/L (40-110); Anion Gap 14 mmol/L (10-20); BUN (Urea Nitrogen) 15 mg/dL (9.8-20.1); Bilirubin, Total 0.8 mg/dL (0.2-1.2); Calc. Creatinine Clearance 0 mL/min (70-130); Calcium 9.6 mg/dL (7.8-10.44); Carbon Dioxide 29 mmol/L (23-31); Chloride 99 mmol/L (98-107); Estimated GFR 81; Globulin 2.5 g/dL (2.4-3.5); Glucose 105 mg/dL (83-110); Lipase 19 U/L (8-78); Potassium 3.9 mmol/L (3.5-5.1); Protein, Total 6.6 g/dL (5.8-8.1); Sodium 138 mmol/L (136-145)
[2023-06-26] MEDS ORDERED: Ketorolac Tromethamine 30 MG (1 mL) VIAL ONE (18:19)
[2023-06-26] MEDS ORDERED: Fleet Saline Enema 133 ML BOT PR SCH (19:30)
[2023-06-26] MEDS ORDERED: Mineral Oil ENEMA ONE (19:30)
[2023-06-26 20:19] LABS: Bilirubin Negative (Negative); Blood, Urine 2+ (Negative); CAUTI Indications for Culture Alt mental st,lethar; Clarity Clear (Clear); Glucose, Urine (Dipstick) Normal (Negative); Ketone, Urine Negative (Negative); Leukocyte Negative Leu/uL (Negative); Nitrite Negative (Negative); Protein, Urine (Dipstick) Negative (Neg-Trace); Specific Gravity, Urine 1.039 (1.002-1.036); Squamous Epithelial 0-3 HPF (0-3); Urobilinogen Normal mg/dL (Less than 2); WBC/HPF 0-3 HPF (0-3)
[2023-06-26 20:20] LABS: Bacteria/HPF 1+ HPF (None Seen); Urine Culture Reflex No No
== END 2023-06-26 20:35 | disposition home or self-care (01) ==
LOC: ERS 15:53
DX: K59.00 Constipation, unspecified (principal); J44.9 Chronic obstructive pulmonary disease, unspecified; I10 Essential (primary) hypertension; Z87.891 Personal history of nicotine dependence; Z79.899 Other long term (current) drug therapy
CPT/HCPCS: 74177; 80053; 81001; 83690; 85025; 87086; 96374; 96375; J1885; J3010; Q9967

== ENCOUNTER 2023-06-27 12:23 | Emergency (ER) | payer BC ==
[2023-06-27] MEDS ORDERED: Acetaminophen 500 MG TAB ONE (13:27)
== END 2023-06-27 14:33 | disposition home or self-care (01) ==
LOC: ERS 12:23
DX: K59.00 Constipation, unspecified (principal); I10 Essential (primary) hypertension; E03.9 Hypothyroidism, unspecified; E78.5 Hyperlipidemia, unspecified; J44.9 Chronic obstructive pulmonary disease, unspecified; Z87.891 Personal history of nicotine dependence
CPT/HCPCS: 99283

== ENCOUNTER 2023-07-01 09:24 | Emergency (ER) | payer BC ==
[2023-07-01 10:46] LABS: #Eosinphils 0.1 thou/uL (0.0-0.7); #Monocytes 0.7 thou/uL (0.11-0.59); #Neutrophils 9.3 thou/uL (1.40-6.50); %Basophils 0.3 % (0.0-1.0); %Eosinophils 0.8 % (0.0-10.0); %Lymphocytes 12.2 % (21.0-51.0); %Monocytes 5.6 % (0.0-10.0); Hematocrit 31.8 % (36.0-47.0); Hemoglobin 10.6 g/dL (12.0-16.0); Mean Corpuscular HGB CONC 33.3 g/dL (32.0-36.0); Mean Corpuscular Hemoglobin 30.8 pg (27.0-31.0); Mean Corpuscular Volume 92.4 fl (78.0-98.0); Mean Platelet Volume 9.7 fL (7.4-10.4); Platelet Count 404 10x3/uL (130-400); RBC Distribution Width 16.9 % (11.5-14.5); Red Blood Cell (RBC) Count 3.44 mill/uL (4.20-5.40); White Blood Cell (WBC) Count 11.6 10x3/uL (4.8-10.8)
[2023-07-01 11:17] LABS: ALT (SGPT) 131 U/L (8-55); AST (SGOT) 101 U/L (5-34); Albumin 3.6 g/dL (3.4-4.8); Alkaline Phosphatase 63 U/L (40-110); Anion Gap 14 mmol/L (10-20); BUN (Urea Nitrogen) 24 mg/dL (9.8-20.1); Bilirubin, Total 0.8 mg/dL (0.2-1.2); Calc. Creatinine Clearance 0 mL/min (70-130); Calcium 9.1 mg/dL (7.8-10.44); Carbon Dioxide 28 mmol/L (23-31); Chloride 100 mmol/L (98-107); Estimated GFR 89; Globulin 2.3 g/dL (2.4-3.5); Glucose 108 mg/dL (83-110); Lipase 27 U/L (8-78); Potassium 3.6 mmol/L (3.5-5.1); Protein, Total 5.9 g/dL (5.8-8.1); Sodium 138 mmol/L (136-145)
== END 2023-07-01 11:54 | disposition home or self-care (01) ==
LOC: ERS 09:24
DX: K59.00 Constipation, unspecified (principal); J44.9 Chronic obstructive pulmonary disease, unspecified; I10 Essential (primary) hypertension
CPT/HCPCS: 36415; 80053; 83690; 85025; 99284

== ENCOUNTER 2023-07-06 17:25 | Emergency (ER) | payer BC | END 2023-07-06 17:43 | disposition home or self-care (01) | LOC: ERS 17:25 | DX: Z53.21 Procedure and treatment not carried out due to patient leaving prior to being seen by health care provider (principal) ==

== ENCOUNTER 2023-07-07 07:05 | Observation (INO) | payer BC ==
[2023-07-07 08:52] LABS: #Eosinphils 0.1 thou/uL (0.0-0.7); #Monocytes 0.4 thou/uL (0.11-0.59); #Neutrophils 5.4 thou/uL (1.40-6.50); %Basophils 0.3 % (0.0-1.0); %Lymphocytes 16.9 % (21.0-51.0); %Monocytes 5.2 % (0.0-10.0); %Neutrophils 75.6 % (42.0-75.0); Hematocrit 27.2 % (36.0-47.0); Hemoglobin 8.6 g/dL (12.0-16.0); Mean Corpuscular HGB CONC 31.6 g/dL (32.0-36.0); Mean Corpuscular Hemoglobin 30.6 pg (27.0-31.0); Mean Corpuscular Volume 96.8 fl (78.0-98.0); Mean Platelet Volume 9.5 fL (7.4-10.4); Platelet Count 441 10x3/uL (130-400); RBC Distribution Width 17.5 % (11.5-14.5); Red Blood Cell (RBC) Count 2.81 mill/uL (4.20-5.40); White Blood Cell (WBC) Count 7.1 10x3/uL (4.8-10.8)
[2023-07-07 09:15] LABS: ALT (SGPT) 18 U/L (8-55); AST (SGOT) 10 U/L (5-34); Albumin 3.4 g/dL (3.4-4.8); Alkaline Phosphatase 67 U/L (40-110); Anion Gap 11 mmol/L (10-20); BUN (Urea Nitrogen) 22 mg/dL (9.8-20.1); Bilirubin, Total 0.3 mg/dL (0.2-1.2); Calc. Creatinine Clearance 0 mL/min (70-130); Calcium 9.2 mg/dL (7.8-10.44); Carbon Dioxide 29 mmol/L (23-31); Chloride 103 mmol/L (98-107); Estimated GFR 78; Globulin 2.2 g/dL (2.4-3.5); Glucose 156 mg/dL (83-110); Potassium 3.5 mmol/L (3.5-5.1); Protein, Total 5.6 g/dL (5.8-8.1); Sodium 139 mmol/L (136-145)
[2023-07-07] MEDS ORDERED: Acetaminophen 325 MG TAB PO PRN (11:08)
[2023-07-07 12:47] LABS: Iron 37 ug/dL (50-170); Iron Binding Capacity, Total 218 mcg/dL (265-497); Transferrin, Serum 174 mg/dL (173-360)
[2023-07-07] MEDS ORDERED: Fleet Saline Enema 133 ML BOT ONE (13:02)
[2023-07-07] MEDS: Lactated Ringer's 500 ML IV SCH (13:28)
[2023-07-07] MEDS: Senokot 8.6 MG TAB PO SCH (13:28)
[2023-07-07] MEDS: Fleet Saline Enema 133 ML BOT PR SCH (13:28)
[2023-07-07 14:10] VITALS: BMI 21.7
[2023-07-07] MEDS ORDERED: Polyethylene Glycol 3350 17 GM Packet ONE (15:30)
[2023-07-07] MEDS: Polyethylene Glycol 3350 17 GM Packet PO SCH (15:35)
[2023-07-07] MEDS ORDERED: Albuterol 200 PUFF (6.7GM INHALER) INH PRN (18:22)
[2023-07-07] MEDS ORDERED: Ondansetron ODT 4 MG TAB PO PRN (18:29)
[2023-07-07] MEDS ORDERED: Electrolyte Replacement Protocol 1 EACH FS SCH (18:30)
[2023-07-08 04:40] LABS: #Eosinphils 0.1 thou/uL (0.0-0.7); #Monocytes 0.4 thou/uL (0.11-0.59); #Neutrophils 3.8 thou/uL (1.40-6.50); %Basophils 0.3 % (0.0-1.0); %Eosinophils 1.3 % (0.0-10.0); %Lymphocytes 28.9 % (21.0-51.0); %Monocytes 6.6 % (0.0-10.0); %Neutrophils 62.2 % (42.0-75.0); Hematocrit 25.5 % (36.0-47.0); Hemoglobin 8.1 g/dL (12.0-16.0); Mean Corpuscular HGB CONC 31.8 g/dL (32.0-36.0); Mean Corpuscular Hemoglobin 30.7 pg (27.0-31.0); Mean Corpuscular Volume 96.6 fl (78.0-98.0); Mean Platelet Volume 9.3 fL (7.4-10.4); Platelet Count 421 10x3/uL (130-400); RBC Distribution Width 17.5 % (11.5-14.5); Red Blood Cell (RBC) Count 2.64 mill/uL (4.20-5.40)
[2023-07-08 05:57] LABS: Anion Gap 9 mmol/L (10-20); BUN (Urea Nitrogen) 10 mg/dL (9.8-20.1); Carbon Dioxide 29 mmol/L (23-31); Potassium 3.6 mmol/L (3.5-5.1)
[2023-07-08 06:23] LABS: Calc. Creatinine Clearance 85 mL/min (70-130); Chloride 107 mmol/L (98-107); Estimated GFR 97; Glucose 100 mg/dL (83-110); Sodium 141 mmol/L (136-145)
[2023-07-08 07:55] VITALS: TEMP 97.5
[2023-07-08] MEDS: Polyethylene Glycol 3350 17 GM Packet PO SCH (08:06)
[2023-07-08] MEDS: Multivit, Therapeutic 1 TAB PO SCH (08:06)
[2023-07-08] MEDS: Thiamine 100 MG TAB PO SCH (08:06)
[2023-07-08] MEDS: Folic Acid 1 MG TAB PO SCH (08:06)
[2023-07-08] MEDS: Carvedilol 3.125 MG TAB PO SCH (08:07)
[2023-07-08 12:21] VITALS: BP 159/82
== END 2023-07-08 17:23 | disposition home or self-care (01) ==
LOC: ERS 07:05 → ERHOLD 08:57 → T4-B 20:38
PROVIDERS: ADMIT Student in an Organized Health Care Education/Training Program; ATTEND Student in an Organized Health Care Education/Training Program
DX: K59.00 Constipation, unspecified (principal); E86.0 Dehydration; D64.9 Anemia, unspecified; J44.9 Chronic obstructive pulmonary disease, unspecified; I10 Essential (primary) hypertension; F17.210 Nicotine dependence, cigarettes, uncomplicated; G30.9 Alzheimer's disease, unspecified; F02.80 Dementia in other diseases classified elsewhere, unspecified severity, without behavioral disturbance, psychotic disturbance, mood disturbance, and anxiety; Z79.51 Long term (current) use of inhaled steroids
CPT/HCPCS: 36415; 74176; 80048; 80053; 82728; 83540; 83550; 84466; 85025; 85046; G0378; J7120

== ENCOUNTER 2024-06-17 12:25 | Inpatient (IN) | payer BC ==
[2024-06-17] MEDS ORDERED: Bisacodyl 5 MG TAB PO PRN (12:35)
[2024-06-17] MEDS ORDERED: Senokot S 8.6-50 MG TAB PO PRN (12:35)
[2024-06-17 14:34] VITALS: BMI 13.5
[2024-06-17 15:07] LABS: Hematocrit 37.2 % (36.0-47.0); Hemoglobin 11.7 g/dL (12.0-16.0); Mean Corpuscular HGB CONC 31.5 g/dL (32.0-36.0); Mean Corpuscular Hemoglobin 31.6 pg (27.0-31.0); Mean Corpuscular Volume 100.5 fL (78.0-98.0); Mean Platelet Volume 9.9 fL (7.4-10.4); Platelet Count 405 10x3/uL (130-400); RBC Distribution Width 12.5 % (11.5-14.5)
[2024-06-17] MEDS: Lactated Ringer's 1,000 ML IV SCH (15:31)
[2024-06-17 15:32] LABS: Hypochromia SLIGHT = 6-15 cells HPF (0-5); Lymphocytes 1 % (21-51); Monocytes 3 % (0-10); Neutrophil 96 % (42-75); Ovalocytes SLIGHT = 2-5 cells HPF (0-1); Platelet Adequacy Comment Platelets Normal
[2024-06-17 15:37] LABS: ALT (SGPT) 11 U/L (Less than 34); AST (SGOT) 13 U/L (11-34); Albumin 3.6 g/dL (3.1-4.5); Alkaline Phosphatase 50 U/L (40-110); Anion Gap 14 mmol/L (10-20); BUN (Urea Nitrogen) 32 mg/dL (9.8-20.1); Bilirubin, Total 0.7 mg/dL (0.3-1.2); Calc. Creatinine Clearance 25 mL/min (70-130); Calcium 9.6 mg/dL (7.8-10.44); Carbon Dioxide 30 mmol/L (23-31); Chloride 99 mmol/L (98-107); Estimated GFR 61; Globulin 2.6 g/dL (2.4-3.5); Glucose 182 mg/dL (83-110); Magnesium 1.9 mg/dL (1.6-2.6); Potassium 3.6 mmol/L (3.5-5.1); Protein, Total 6.2 g/dL (5.8-8.1); Sodium 139 mmol/L (136-145)
[2024-06-17 15:39] LABS: Phosphorus 3.9 mg/dL (2.5-4.5)
[2024-06-17] MEDS: Budesonide 0.5 MG/2 ML NEB INH SCH (16:38)
[2024-06-17] MEDS: Ipratropium/Albuterol 3 ML NEB NEB SCH (16:41)
[2024-06-17 17:28] LABS: Influenza A by NAA Not Detected (NotDetected); Influenza B by NAA Not Detected (NotDetected); RSV by NAA Not Detected (NotDetected); SARS-CoV-2 NAA Rapid Test Not Detected (NotDetected)
[2024-06-17] MEDS ORDERED: Budesonide 0.5 MG/2 ML NEB INH SCH (18:30)
[2024-06-17] MEDS: Mometasone 200 MCG/Formoterol 5 MCG 120 PUFF INHALER INH SCH (18:46)
[2024-06-17] MEDS ORDERED: FLU (Fluad Triv) TS24-25 (65UP)/MF59C/PF 45 MCG/0.5 ML Syringe IM ONE (21:00)
[2024-06-17] MEDS: Acetaminophen 325 MG TAB PO PRN (21:06)
[2024-06-17] MEDS: Famotidine 20 MG TAB PO SCH (21:06)
[2024-06-17] MEDS: Melatonin 3 MG TAB PO PRN (21:06)
[2024-06-18 04:45] LABS: #Basophils Less than 0.03 10x3/uL (0.0-0.2); #Eosinophils Less than 0.03 10x3/uL (0.0-0.7); %Eosinophils 0.3 % (0.0-10.0); %Lymphocytes 18.6 % (21.0-51.0); %Monocytes 7.6 % (0.0-10.0); %Neutrophils 71.7 % (42.0-75.0); Hematocrit 32.9 % (36.0-47.0); Hemoglobin 10.4 g/dL (12.0-16.0); Mean Corpuscular HGB CONC 31.6 g/dL (32.0-36.0); Mean Corpuscular Hemoglobin 31.4 pg (27.0-31.0); Mean Corpuscular Volume 99.4 fL (78.0-98.0); Mean Platelet Volume 9.9 fL (7.4-10.4); Platelet Count 295 10x3/uL (130-400); RBC Distribution Width 12.3 % (11.5-14.5); Red Blood Cell (RBC) Count 3.31 mill/uL (4.20-5.40)
[2024-06-18] MEDS: Enoxaparin 30 MG (0.3 mL) SYRINGE SC SCH (10:11)
[2024-06-18] MEDS: Thiamine 100 MG TAB PO SCH (10:12)
[2024-06-18] MEDS: Cyanocobalamin (Vitamin B-12) 1,000 MCG TAB PO SCH (10:12)
[2024-06-18] MEDS: Folic Acid 1 MG TAB PO SCH (10:12)
[2024-06-18] MEDS: Carvedilol 6.25 MG TAB PO SCH (10:12)
[2024-06-18] MEDS: Lisinopril 20 MG TAB PO SCH (10:12)
[2024-06-18 12:48] VITALS: BMI 13.8
[2024-06-18] MEDS: Potassium Chloride 20 MEQ TAB PO SCH (13:43)
[2024-06-18] MEDS: Lactated Ringer's 500 ML IV SCH (19:00)
[2024-06-19 06:25] LABS: #Basophils Less than 0.03 10x3/uL (0.0-0.2); %Basophils 0.2 % (0.0-1.0); %Eosinophils 1.1 % (0.0-10.0); %Lymphocytes 17.9 % (21.0-51.0); %Monocytes 6.9 % (0.0-10.0); Hematocrit 29.2 % (36.0-47.0); Hemoglobin 9.4 g/dL (12.0-16.0); Mean Corpuscular HGB CONC 32.2 g/dL (32.0-36.0); Mean Corpuscular Volume 99.3 fL (78.0-98.0); Mean Platelet Volume 10.3 fL (7.4-10.4); Platelet Count 265 10x3/uL (130-400); RBC Distribution Width 12.4 % (11.5-14.5); Red Blood Cell (RBC) Count 2.94 mill/uL (4.20-5.40)
[2024-06-19] MEDS: hydrOXYzine 10 MG TAB PO SCH (11:58)
[2024-06-19 17:46] LABS: Anion Gap 11 mmol/L (10-20); BUN (Urea Nitrogen) 16 mg/dL (9.8-20.1); Calc. Creatinine Clearance 46 mL/min (70-130); Calcium 8.5 mg/dL (7.8-10.44); Carbon Dioxide 26 mmol/L (23-31); Chloride 103 mmol/L (98-107); Estimated GFR 93; Glucose 189 mg/dL (83-110); Potassium 4.2 mmol/L (3.5-5.1); Sodium 136 mmol/L (136-145)
[2024-06-20 04:41] LABS: #Basophils Less than 0.03 10x3/uL (0.0-0.2); %Basophils 0.2 % (0.0-1.0); %Lymphocytes 18.2 % (21.0-51.0); %Monocytes 7.5 % (0.0-10.0); %Neutrophils 72.6 % (42.0-75.0); Hematocrit 32.1 % (36.0-47.0); Hemoglobin 10.2 g/dL (12.0-16.0); Mean Corpuscular HGB CONC 31.8 g/dL (32.0-36.0); Mean Corpuscular Hemoglobin 31.4 pg (27.0-31.0); Mean Corpuscular Volume 98.8 fL (78.0-98.0); Mean Platelet Volume 10.2 fL (7.4-10.4); Platelet Count 240 10x3/uL (130-400); RBC Distribution Width 12.2 % (11.5-14.5); Red Blood Cell (RBC) Count 3.25 mill/uL (4.20-5.40)
[2024-06-20 05:01] LABS: Anion Gap 8 mmol/L (10-20); BUN (Urea Nitrogen) 10 mg/dL (9.8-20.1); Calc. Creatinine Clearance 51 mL/min (70-130); Calcium 8.5 mg/dL (7.8-10.44); Carbon Dioxide 26 mmol/L (23-31); Chloride 107 mmol/L (98-107); Estimated GFR 96; Glucose 116 mg/dL (83-110); Potassium 3.6 mmol/L (3.5-5.1); Sodium 137 mmol/L (136-145)
[2024-06-20] MEDS: Mirtazapine 15 MG TAB PO SCH (23:18)
[2024-06-21 04:58] LABS: #Basophils Less than 0.03 10x3/uL (0.0-0.2); %Basophils 0.2 % (0.0-1.0); %Eosinophils 0.9 % (0.0-10.0); %Monocytes 9.9 % (0.0-10.0); %Neutrophils 63.3 % (42.0-75.0); Hematocrit 33.5 % (36.0-47.0); Hemoglobin 10.6 g/dL (12.0-16.0); Mean Corpuscular HGB CONC 31.6 g/dL (32.0-36.0); Mean Corpuscular Hemoglobin 31.5 pg (27.0-31.0); Mean Corpuscular Volume 99.4 fL (78.0-98.0); Mean Platelet Volume 10.3 fL (7.4-10.4); Platelet Count 218 10x3/uL (130-400); RBC Distribution Width 12.2 % (11.5-14.5); Red Blood Cell (RBC) Count 3.37 mill/uL (4.20-5.40)
[2024-06-21 05:12] LABS: Anion Gap 11 mmol/L (10-20); BUN (Urea Nitrogen) 8 mg/dL (9.8-20.1); Calc. Creatinine Clearance 49 mL/min (70-130); Calcium 8.8 mg/dL (7.8-10.44); Carbon Dioxide 26 mmol/L (23-31); Chloride 110 mmol/L (98-107); Estimated GFR 95; Glucose 112 mg/dL (83-110); Sodium 143 mmol/L (136-145)
[2024-06-21] MEDS ORDERED: Enoxaparin 40 MG (0.4 mL) SYRINGE SC SCH (09:00)
[2024-06-21] MEDS: Enoxaparin 30 MG (0.3 mL) SYRINGE SC SCH (10:46)
[2024-06-22 05:32] LABS: #Basophils Less than 0.03 10x3/uL (0.0-0.2); %Basophils 0.2 % (0.0-1.0); %Eosinophils 0.7 % (0.0-10.0); %Monocytes 9.3 % (0.0-10.0); %Neutrophils 65.1 % (42.0-75.0); Hematocrit 33.4 % (36.0-47.0); Hemoglobin 10.4 g/dL (12.0-16.0); Mean Corpuscular HGB CONC 31.1 g/dL (32.0-36.0); Mean Corpuscular Hemoglobin 31.5 pg (27.0-31.0); Mean Corpuscular Volume 101.2 fL (78.0-98.0); Platelet Count 240 10x3/uL (130-400); RBC Distribution Width 12.5 % (11.5-14.5)
[2024-06-22 05:49] LABS: Anion Gap 11 mmol/L (10-20); BUN (Urea Nitrogen) 9 mg/dL (9.8-20.1); Calc. Creatinine Clearance 49 mL/min (70-130); Calcium 8.8 mg/dL (7.8-10.44); Carbon Dioxide 25 mmol/L (23-31); Chloride 109 mmol/L (98-107); Estimated GFR 95; Glucose 98 mg/dL (83-110); Potassium 4.1 mmol/L (3.5-5.1); Sodium 141 mmol/L (136-145)
[2024-06-22 13:14] VITALS: BP 124/61; TEMP 97.8
== END 2024-06-22 16:30 | disposition home health service (06) | DRG 640 ==
LOC: 2NO 13:23
PROVIDERS: ADMIT Student in an Organized Health Care Education/Training Program; ATTEND Student in an Organized Health Care Education/Training Program
DX: E86.1 Hypovolemia (principal); E43 Unspecified severe protein-calorie malnutrition; Z68.1 Body mass index [BMI] 19.9 or less, adult; I50.22 Chronic systolic (congestive) heart failure; I95.2 Hypotension due to drugs; E86.0 Dehydration; G30.9 Alzheimer's disease, unspecified; F02.80 Dementia in other diseases classified elsewhere, unspecified severity, without behavioral disturbance, psychotic disturbance, mood disturbance, and anxiety; J44.9 Chronic obstructive pulmonary disease, unspecified; D53.9 Nutritional anemia, unspecified; Z79.899 Other long term (current) drug therapy; I11.0 Hypertensive heart disease with heart failure; E78.5 Hyperlipidemia, unspecified; E03.9 Hypothyroidism, unspecified
CPT/HCPCS: 0241U; 36415; 71045; 80048; 80053; 82607; 83090; 83735; 83880; 84100; 84145; 84425; 84443; 85025; 94640; J1650; J7120; J7620